=== PATIENT | male | born 1950 | race Caucasian/White ===

== ENCOUNTER 2022-03-10 09:28 | Day surgery (SDC) | payer MEDICARE ==
[2022-03-09 11:47] VITALS: BMI 27.8
--- NOTE | 2022-03-09 21:21 | HP ---
HISTORY AND PHYSICAL CHIEF COMPLAINT: Retained and occluded left ventilation tube. HISTORY OF PRESENT ILLNESS: This patient is a pleasant 71-year-old male, who was recently seen in my office complaining of having a plugged sensation in his left ear as well as drainage. The patient states that in approximately September of 2021, he underwent insertion of a ventilation tube in the left ear because of fluid in the left middle ear space. The patient states that he did not notice any significant improvement in his hearing after insertion of the tube. He subsequently developed drainage from the left ear. He was seen in my office as a courtesy because the tube had been placed by a physician at a clinic in [place] at [facility]. At the time that the patient was seen in my office, he explained that the physician in [place], [place] had placed the tube in his left ear in the office setting. Clinical examination of the ear revealed that there was a severe amount of drainage from the left ear. The patient was placed on a course of Cipro 500 mg tablets p.o. b.i.d. and also Ciprodex 4 drops in the left ear 3 times daily. After approximately 2-1/2 to 3 weeks, we were able to obtain a dry ear. Clinical examination of the left ear revealed that the left tube appeared to be occluded, and therefore, was not functioning. The patient was given the option of either replacement of the tube or simply removal of the tube and placing a Gelfilm patch over the residual perforation. The patient elected to have the tube separately removed because he had not noticed any improvement with the placement of the tube to begin with. Therefore, the patient is scheduled to undergo removal of a left retained/occluded ventilation tube under IV sedation with MAC. At that time, we will also place a Gelfilm patch over the residual perforation. PAST MEDICAL HISTORY: Reveals the patient has no known allergies to medications. CURRENT MEDICATIONS: Include: 1. Ciprodex. 2. Zyrtec. 3. Lipitor. REVIEW OF SYSTEMS: Positive respect to the metabolic endocrine system for hypercholesterolemia. The remainder of the review of systems is unremarkable. PREVIOUS SURGERIES: Include left myringotomy with insertion of ventilation tube, a lower back lumbar laminectomy, and prostate surgery. PHYSICAL EXAMINATION: GENERAL: This patient is a pleasant 71-year-old male, who was alert and cooperative. HEENT: The patient is normocephalic. Examination of the patient's right ear is unremarkable. Left ear reveals a retained/occluded ventilation tube present. There may also be fluid present in the left middle ear space. Pupils are equal, round, and react to light and accommodation. Extraocular movements are within normal limits. Intranasal examination reveals [id number] septal deviation with compensatory hypertrophy of the inferior turbinates and a moderate amount of mucus on the mucous membrane draining down the posterior pharynx. Examination of the oropharynx, cranial nerves 2 through 12, and the remainder of the head and neck exam are essentially unremarkable. CHEST/CARDIOVASCULAR: Both lung fay are clear to percussion and auscultation. The patient is in regular sinus rhythm. S1 and S2 are present without evidence of any murmurs, S3's, or S4's. Peripheral pulses are bilaterally symmetrical. ABDOMEN: There is no evidence of any masses, megaly, or tenderness. The abdomen is soft. SKIN: Unremarkable. MUSCULOSKELETAL/NEUROLOGICAL: All within normal limits. RECTAL: Deferred at this time because the patient has this done on a regular basis at his family physician's office. The remainder of the physical exam is essentially unremarkable. IMPRESSION: Retained/occluded left ventilation tube. The patient is scheduled to undergo removal of a retained/occluded ventilation tube from the left tympanic membrane and subsequent patching with Gelfilm under IV sedation with MAC. Attention RNs in the pre-surgical area: I have not ordered any pre-surgical prophylactic antibiotics for this patient. If the Pharmacy Department sends any pre- surgical prophylactic antibiotics to the pre-surgical area for this patient, please return that medication to the Pharmacy Department, cancel that order, and make sure that the patient's account is credited appropriately. I have discussed the risks, benefits and alternative therapies for the above-mentioned procedure and for both sedation/analgesia as well as necessary blood product administration, if indicated, as they pertain to this patient. The patient has indicated his understanding and acceptance of the risks and procedures discussed. MMODL / IJN: [id number] /
[~2022-03-10 09:28] MED LIST: LACTATED RINGERS 1,000 ML IV SCH; Pre Op ABX Message 1 EACH MISC MISCELLANE ONE
[2022-03-10 10:20] VITALS: TEMP 97.3
[2022-03-10] MEDS ORDERED: ONDANSETRON 4 MG/2 ML VIAL ONE (10:21)
[2022-03-10] MEDS ORDERED: LIDOCAINE 1% (10MG/ML) FOR IV START INTRADERMA ONE (10:32)
[2022-03-10] MEDS ORDERED: MIDAZOLAM 2 MG/2 ML VIAL ONE (10:50)
[2022-03-10] MEDS ORDERED: PROPOFOL 10 MG/ML 20 ML VIAL IV ONE (10:50)
[2022-03-10] MEDS ORDERED: fentaNYL (PF) 50 MCG/ML 2 ML AMP ONE (10:50)
[2022-03-10] MEDS ORDERED: KETAMINE 10 MG/ML 20 ML VIAL ONE (10:50)
[2022-03-10] MEDS ORDERED: OFLOXACIN 0.3% OPHTH DROPS 5 ML BOTTLE LEFT EAR ONE ×2 (11:01→11:11)
[2022-03-10] MEDS ORDERED: GELATIN SPONGE,ABSORB (SMALL) 1 EACH SPONGE TOPICAL ONE ×2 (11:02→11:11)
[2022-03-10] MEDS ORDERED: LACTATED RINGERS 1,000 ML IV ONE (11:26)
[2022-03-10 12:10] VITALS: BP 118/81; PULSE 61; RESP 20
--- NOTE | 2022-03-12 21:09 | OP ---
OPERATIVE REPORT PREOPERATIVE DIAGNOSIS: Retained occluded ventilation tube in the left tympanic membrane. POSTOPERATIVE DIAGNOSIS: Retained occluded ventilation tube in the left tympanic membrane. ANESTHESIA: IV sedation with MAC. PROCEDURE PERFORMED: Removal of retained occluded ventilation tube from the left tympanic membrane and patching of the residual perforation with Gelfoam. COMPLICATIONS: None. ESTIMATED BLOOD LOSS: Zero. DESCRIPTION OF PROCEDURE: The patient was placed on the operating table in supine position. After uneventful induction and IV sedation, satisfactory sedation was obtained. Next, the patient's left ear was draped in usual customary fashion. Following this, using the [employer] operating microscope and a #3 aural speculum, the left external auditory canal was cleansed of all wax and debris. Next, a myringotomy knife was used to carefully loosen up the retained ventilation tube by incising around a portion of the retained ventilation tube. Next, the tube was grasped with a pair of alligator forceps and was gently removed in an atraumatic fashion. Inspection revealed that there was only a scant amount of purulent material in the left middle ear space. Next, several pledgets of Gelfoam saturated with ofloxacin otic solution were placed in the middle ear space using a pair of alligator forceps. Next, several pieces of Gelfoam which had been saturated with otic solution were compressed and were placed over the residual perforation. The entire left external auditory canal was then filled with otic solution. At this point, the procedure was terminated. There were no intraoperative complications. The patient tolerated the procedure well and was returned to the recovery room in satisfactory condition. MMODL / IJN: [id number] /
== END 2022-03-10 12:30 | disposition home or self-care (01) ==
LOC: OR 09:28
PROVIDERS: ATTEND Otolaryngology
DX: H68.102 Unspecified obstruction of Eustachian tube, left ear (principal); H91.90 Unspecified hearing loss, unspecified ear; E78.5 Hyperlipidemia, unspecified; Z79.899 Other long term (current) drug therapy; Z80.8 Family history of malignant neoplasm of other organs or systems
CPT/HCPCS: 69424; J2250; J2405; J3010; J2704